=== PATIENT | male | born 1965 | race African-American/Black ===

== ENCOUNTER 2017-03-12 16:25 | Emergency (ER) | payer MEDICAID ==
[~2017-03-12 16:25] MED LIST: FLUO-191 PO; INSU100V12 SQ; OLAN5TAB2 PO
== END 2017-03-12 16:39 | disposition left against medical advice (07) ==
LOC: EMS 16:28
DX: Z00.8 Encounter for other general examination (principal); Z53.21 Procedure and treatment not carried out due to patient leaving prior to being seen by health care provider

== ENCOUNTER 2017-03-12 17:26 | Inpatient (IN) | payer MEDICAID ==
[~2017-03-12] VITALS: Ht 180.3 cm; Wt 109.9 kg
[2017-03-12 17:37] LABS: GLUCOSE,POINT OF CARE 262 MG/DL (70-110)
[2017-03-12 18:49] LABS: BASOPHILS % (AUTO) 0.7 % (0.0-2.0); EOSINOPHILS % (AUTO) 1.4 % (1.0-6.0); HEMATOCRIT 43.4 % (41-53); HEMOGLOBIN 14.4 g/dL (13.5-17.5); LYMPHOCYTES # (AUTO) 2.6 K/uL (1.0-4.8); LYMPHOCYTES % (AUTO) 37.6 % (22.0-44.0); MEAN CORPUSCULAR HEMOGLOBIN 28.7 pg (26.0-34.0); MEAN CORPUSCULAR HGB CONC 33.3 G/dL (31.0-37.0); MEAN CORPUSCULAR VOLUME 86 fL (80-100); MONOCYTES # (AUTO) 0.6 K/uL (0.1-1.0); MONOCYTES % (AUTO) 8.5 % (2.0-9.0); NEUTROPHILS # (AUTO) 3.5 K/uL (1.8-7.7); NEUTROPHILS % (AUTO) 51.8 % (40.0-70.0); PLATELET COUNT (AUTO) 296 K/uL (150-450); RED BLOOD CELL COUNT(AUTO) 5.03 MIL/uL (4.50-5.90); RED CELL DISTRIBUTION WIDTH 15.4 % (11.5-14.5); WHITE BLOOD COUNT (AUTO) 6.8 K/uL (4.5-11.0)
[2017-03-12 18:58] LABS: ANION GAP 8 mmol/L (8-16); CALCIUM, TOTAL 8.4 mg/dL (8.8-10.5); CARBON DIOXIDE 28 mmol/L (22-29); CHLORIDE 101 mmol/L (98-107); CREATININE 0.92 mg/dL (0.60-1.30); GLOMERULAR FILTR. RATE CALC > 60 mL/min (>60); POTASSIUM 3.3 mmol/L (3.5-5.1); SODIUM SERUM 137 mmol/L (136-145); UREA NITROGEN, BLOOD 18 mg/dL (7-18)
[2017-03-12 19:04] LABS: ALANINE AMINOTRANSFERASE 55 U/L (12-78); ALBUMIN 3.8 g/dL (3.4-5.0); ASPARTATE AMINOTRANSFERASE 54 U/L (15-37); BILIRUBIN,TOTAL 0.5 mg/dL (0.1-1.0); TOTAL PROTEIN, SERUM 7.5 g/dL (6.4-8.2)
[2017-03-12 19:15] LABS: RBC MORPHOLOGY COMMENT NORMAL RBC MORPH
[2017-03-12] MEDS ORDERED: HALOPERIDOL 5 MG TABLET PO PRN (20:15)
[2017-03-12 20:21] LABS: APPEARANCE,URINE CLEAR (CLEAR); GLUCOSE, URINE (UA) 500 mg/dL (NEGATIVE); KETONES,URINE TRACE mg/dL (NEGATIVE); LEUKOCYTE ESTERASE ,URINE NEGATIVE (NEGATIVE); OCCULT BLOOD,URINE NEGATIVE (NEGATIVE); PH,URINE 5.5 (5.0-8.0); PROTEIN,URINE TRACE (NEGATIVE)
[2017-03-12 20:22] LABS: ADD UA MICROSCOPIC YES
[2017-03-12] MEDS ORDERED: SODIUM CHLORIDE 0.9% 1,000 ML IV ONE (20:30)
[2017-03-12] MEDS ORDERED: POTASSIUM CHLORIDE 20 MEQ ER TABLET PO ONE (20:30)
[2017-03-12] MEDS ORDERED: INSULIN REGULAR, HUMAN 100 UNITS/ML IVP ONE (20:30)
[2017-03-12 20:32] LABS: GLUCOSE,POINT OF CARE 291 MG/DL (70-110)
[2017-03-12 20:35] LABS: RBC,URINE None Seen /HPF (0-2); WBC,URINE 0-2 /HPF (0-5)
[2017-03-12 20:36] LABS: SQUAMOUS EPITHELIAL CELL,UR Rare /LPF (None Seen)
[2017-03-12 21:33] LABS: GLUCOSE COMMENT 1 Doctor Notified; GLUCOSE,POINT OF CARE 126 MG/DL (70-110)
[2017-03-12 23:55] VITALS: BP 130/74
[2017-03-13] MEDS ORDERED: PNEUMOCOCCAL VACCINE POLYVALENT 0.5 ML VIAL [PPSV23] IM ONE (00:30)
[2017-03-13 01:30] VITALS: BP 131/73
[2017-03-13] MEDS ORDERED: POTASSIUM CHLORIDE 10% 40 MEQ/30 ML LIQUID UDCUP PO ONE (07:30)
[2017-03-13] MEDS ORDERED: GLUCAGON,HUMAN RECOMBINANT 1 MG VIAL IM PRN (07:45)
[2017-03-13 08:03] VITALS: BP 107/58
[2017-03-13 08:59] LABS: CHOL/HDL RATIO 3.2 (4.2-7.3)
[2017-03-13] MEDS: BACITRACIN 28.4 GM OINTMENT TP SCH ×2 (09:50→16:53)
[2017-03-13] MEDS: LORazepam 2 MG TABLET PO PRN ×2 (09:50→16:53)
[2017-03-13] MEDS: INSULIN ASPART 100 UNITS/ML SQ PRN ×3 (11:24→21:05)
[2017-03-13 11:33] LABS: GLUCOSE,POINT OF CARE 154 MG/DL (70-110)
[2017-03-13] MEDS: FLUoxetine HCL 20 MG CAPSULE PO SCH (12:28)
[2017-03-13 16:27] VITALS: BP 114/62
[2017-03-13 17:23] LABS: GLUCOSE COMMENT 1 Received Meds; GLUCOSE,POINT OF CARE 192 MG/DL (70-110)
[2017-03-13] MEDS: OLANZapine 5 MG TABLET PO SCH (20:21)
[2017-03-13 21:18] LABS: GLUCOSE COMMENT 1 Received Meds; GLUCOSE,POINT OF CARE 194 MG/DL (70-110)
[2017-03-14 06:25] VITALS: BP 125/75
[2017-03-14] MEDS: INSULIN ASPART 100 UNITS/ML SQ PRN ×4 (06:28→20:51)
[2017-03-14 06:29] LABS: GLUCOSE,POINT OF CARE 166 MG/DL (70-110)
[2017-03-14 08:18] VITALS: BP 107/62
[2017-03-14] MEDS: LORazepam 2 MG TABLET PO PRN (08:54)
[2017-03-14] MEDS: FLUoxetine HCL 20 MG CAPSULE PO SCH (08:54)
[2017-03-14] MEDS: BACITRACIN 28.4 GM OINTMENT TP SCH ×2 (10:17→16:58)
[2017-03-14 11:33] LABS: GLUCOSE COMMENT 1 Received Meds; GLUCOSE,POINT OF CARE 233 MG/DL (70-110)
[2017-03-14 16:00] VITALS: BP 112/65
[2017-03-14 17:33] LABS: GLUCOSE COMMENT 1 Received Meds; GLUCOSE,POINT OF CARE 167 MG/DL (70-110)
[2017-03-14] MEDS: OLANZapine 5 MG TABLET PO SCH (20:49)
[2017-03-14] MEDS: INSULIN DETEMIR 100 UNITS/ML SQ SCH (20:51)
[2017-03-14 22:54] LABS: GLUCOSE COMMENT 1 Received Meds; GLUCOSE,POINT OF CARE 201 MG/DL (70-110)
[2017-03-15] MEDS: INSULIN ASPART 100 UNITS/ML SQ PRN ×4 (06:10→20:42)
[2017-03-15 06:23] LABS: GLUCOSE,POINT OF CARE 148 MG/DL (70-110)
[2017-03-15 07:13] VITALS: BP 114/67
[2017-03-15 08:19] VITALS: BP 113/60
[2017-03-15] MEDS: LORazepam 2 MG TABLET PO PRN ×2 (08:41→16:55)
[2017-03-15] MEDS: FLUoxetine HCL 20 MG CAPSULE PO SCH (08:42)
[2017-03-15] MEDS: BACITRACIN 28.4 GM OINTMENT TP SCH ×2 (08:43→16:55)
[2017-03-15 14:48] LABS: GLUCOSE COMMENT 1 Received Meds; GLUCOSE,POINT OF CARE 148 MG/DL (70-110)
[2017-03-15 16:00] VITALS: BP 112/65
[2017-03-15 19:03] LABS: GLUCOSE COMMENT 1 Received Meds; GLUCOSE,POINT OF CARE 203 MG/DL (70-110)
[2017-03-15] MEDS: OLANZapine 5 MG TABLET PO SCH (20:37)
[2017-03-15] MEDS: ZOLPIDEM TARTRATE 10 MG TABLET PO PRN (20:38)
[2017-03-15] MEDS: INSULIN DETEMIR 100 UNITS/ML SQ SCH (20:42)
[2017-03-15 21:47] LABS: GLUCOSE COMMENT 1 Received Meds; GLUCOSE,POINT OF CARE 186 MG/DL (70-110)
[2017-03-16 06:13] LABS: GLUCOSE,POINT OF CARE 136 MG/DL (70-110)
[2017-03-16 06:37] VITALS: BP 118/75
[2017-03-16 08:15] VITALS: BP 124/63
[2017-03-16] MEDS: FLUoxetine HCL 20 MG CAPSULE PO SCH (09:00)
[2017-03-16] MEDS: LORazepam 2 MG TABLET PO PRN ×2 (09:00→16:37)
[2017-03-16] MEDS: BACITRACIN 28.4 GM OINTMENT TP SCH ×2 (09:02→16:37)
[2017-03-16 11:38] LABS: GLUCOSE COMMENT 1 Received Meds; GLUCOSE,POINT OF CARE 149 MG/DL (70-110)
[2017-03-16] MEDS: INSULIN ASPART 100 UNITS/ML SQ PRN ×2 (11:49→16:38)
[2017-03-16 16:00] VITALS: BP 123/76
[2017-03-16 17:37] LABS: GLUCOSE,POINT OF CARE 161 MG/DL (70-110)
[2017-03-16] MEDS: OLANZapine 5 MG TABLET PO SCH (20:57)
[2017-03-16] MEDS: ZOLPIDEM TARTRATE 10 MG TABLET PO PRN (20:57)
[2017-03-16] MEDS: INSULIN DETEMIR 100 UNITS/ML SQ SCH (20:58)
[2017-03-16 21:02] LABS: GLUCOSE,POINT OF CARE 124 MG/DL (70-110)
[2017-03-17 03:34] VITALS: BP 120/78
[2017-03-17 06:33] LABS: GLUCOSE,POINT OF CARE 111 MG/DL (70-110)
[2017-03-17 08:03] VITALS: BP 117/73
[2017-03-17] MEDS: FLUoxetine HCL 20 MG CAPSULE PO SCH (09:35)
[2017-03-17] MEDS: BACITRACIN 28.4 GM OINTMENT TP SCH ×2 (09:35→17:15)
[2017-03-17] MEDS: LORazepam 2 MG TABLET PO PRN ×2 (09:35→17:16)
[2017-03-17] MEDS: INSULIN ASPART 100 UNITS/ML SQ PRN ×3 (11:32→21:00)
[2017-03-17 11:38] LABS: GLUCOSE,POINT OF CARE 250 MG/DL (70-110)
[2017-03-17 16:00] VITALS: BP 121/68
[2017-03-17 16:47] LABS: GLUCOSE COMMENT 1 Received Meds; GLUCOSE,POINT OF CARE 196 MG/DL (70-110)
[2017-03-17 20:57] LABS: GLUCOSE COMMENT 1 Received Meds; GLUCOSE,POINT OF CARE 223 MG/DL (70-110)
[2017-03-17] MEDS: INSULIN DETEMIR 100 UNITS/ML SQ SCH (21:00)
[2017-03-17] MEDS: OLANZapine 5 MG TABLET PO SCH (21:16)
[2017-03-17] MEDS: ZOLPIDEM TARTRATE 10 MG TABLET PO PRN (21:16)
[2017-03-18 06:26] VITALS: BP 111/66
[2017-03-18 06:28] LABS: GLUCOSE,POINT OF CARE 124 MG/DL (70-110)
[2017-03-18 08:10] VITALS: BP 103/64
[2017-03-18 09:17] LABS: CHOL/HDL RATIO 3.7 (4.2-7.3)
[2017-03-18] MEDS: FLUoxetine HCL 20 MG CAPSULE PO SCH (09:18)
[2017-03-18] MEDS: BACITRACIN 28.4 GM OINTMENT TP SCH ×2 (09:19→16:28)
[2017-03-18] MEDS: INSULIN ASPART 100 UNITS/ML SQ PRN ×3 (11:55→20:48)
[2017-03-18 13:20] LABS: GLUCOSE,POINT OF CARE 143 MG/DL (70-110)
[2017-03-18 16:00] VITALS: BP 119/73
[2017-03-18] MEDS: LORazepam 2 MG TABLET PO PRN (16:28)
[2017-03-18] MEDS: ZOLPIDEM TARTRATE 10 MG TABLET PO PRN (20:39)
[2017-03-18] MEDS: OLANZapine 5 MG TABLET PO SCH (20:40)
[2017-03-18] MEDS: INSULIN DETEMIR 100 UNITS/ML SQ SCH (20:46)
[2017-03-19 01:48] LABS: GLUCOSE COMMENT 1 Received Meds; GLUCOSE,POINT OF CARE 185 MG/DL (70-110)
[2017-03-19 05:27] VITALS: BP 109/67
[2017-03-19] MEDS: BACITRACIN 28.4 GM OINTMENT TP SCH ×2 (08:12→16:40)
[2017-03-19] MEDS: FLUoxetine HCL 20 MG CAPSULE PO SCH (08:12)
[2017-03-19 09:00] VITALS: BP 103/51
[2017-03-19 09:05] LABS: GLUCOSE,POINT OF CARE 188 MG/DL (70-110)
[2017-03-19 09:11] LABS: GLUCOSE,POINT OF CARE 106 MG/DL (70-110)
[2017-03-19 11:14] LABS: GLUCOSE COMMENT 1 Repeated; GLUCOSE COMMENT 2 Received Meds; GLUCOSE,POINT OF CARE 256 MG/DL (70-110)
[2017-03-19] MEDS: INSULIN ASPART 100 UNITS/ML SQ PRN ×3 (11:18→20:30)
[2017-03-19 16:16] VITALS: BP 122/74
[2017-03-19 16:37] LABS: GLUCOSE,POINT OF CARE 233 MG/DL (70-110)
[2017-03-19] MEDS: LORazepam 2 MG TABLET PO PRN (18:38)
[2017-03-19 19:51] LABS: GLUCOSE,POINT OF CARE 345 MG/DL (70-110)
[2017-03-19] MEDS: OLANZapine 5 MG TABLET PO SCH (20:27)
[2017-03-19] MEDS: ZOLPIDEM TARTRATE 10 MG TABLET PO PRN (20:27)
[2017-03-19] MEDS: INSULIN DETEMIR 100 UNITS/ML SQ SCH (20:30)
[2017-03-20 03:30] VITALS: BP 125/78
[2017-03-20] MEDS: INSULIN ASPART 100 UNITS/ML SQ PRN (06:35)
[2017-03-20 06:38] LABS: GLUCOSE,POINT OF CARE 151 MG/DL (70-110)
[2017-03-20 08:54] VITALS: BP 10/60
[2017-03-20 09:00] VITALS: BP 101/60
== END 2017-03-20 10:00 | disposition home or self-care (01) | DRG 750 ==
LOC: EMS 17:28 → B2S 20:38 → B3A 03-13 01:28 → B2S 03-18 18:00
PROVIDERS: ADMIT Psychiatry & Neurology Psychiatry; ATTEND Psychiatry & Neurology Psychiatry
DX: F25.1 Schizoaffective disorder, depressive type (principal); R45.851 Suicidal ideations; E11.9 Type 2 diabetes mellitus without complications; F32.9 Major depressive disorder, single episode, unspecified; H40.9 Unspecified glaucoma; F43.10 Post-traumatic stress disorder, unspecified; F17.210 Nicotine dependence, cigarettes, uncomplicated; F15.10 Other stimulant abuse, uncomplicated; F10.10 Alcohol abuse, uncomplicated; F14.10 Cocaine abuse, uncomplicated; E87.6 Hypokalemia; R74.0 Nonspecific elevation of levels of transaminase and lactic acid dehydrogenase [LDH]; Z71.51 Drug abuse counseling and surveillance of drug abuser; Z71.41 Alcohol abuse counseling and surveillance of alcoholic; Z79.899 Other long term (current) drug therapy; Z79.4 Long term (current) use of insulin; Z28.21 Immunization not carried out because of patient refusal
CPT/HCPCS: 82948; 82962; 84132; 90471; 96361; 96374; 99285; 99406; G0480; J1815; J7030